=== PATIENT | female | born 1995 | race Caucasian/White ===

== ENCOUNTER → 2019-02-20 09:34 | Outpatient (CLI) | payer MEDICAID ==
[2015-06-09 06:14] VITALS: BMI 23.1
[~2019-02-20 09:34] MED LIST: HYDROCODONE-APA1 TAB PO; IBUPROFEN600 MG PO; LO LOESTRIN FE; PRENATAL COMPLE1 TAB PO
== END | disposition home or self-care (01) ==
LOC: D.US 09:34
PROVIDERS: ATTEND Nurse Practitioner
DX: N94.6 Dysmenorrhea, unspecified (principal); M54.17 Radiculopathy, lumbosacral region

== ENCOUNTER → 2020-01-18 09:26 | Outpatient (CLI) | payer MEDICAID ==
[2015-06-09 06:14] VITALS: BMI 23.1
== END | disposition home or self-care (01) ==
LOC: D.US 09:26
PROVIDERS: ATTEND Nurse Practitioner
DX: N60.19 Diffuse cystic mastopathy of unspecified breast (principal)